=== PATIENT | male | born 1960 | race Caucasian/White ===

== ENCOUNTER 2025-03-02 01:59 | Emergency (ER) | payer MEDICARE, SELFPAY ==
--- OUTSIDE RECORDS SUMMARY | 2025-02-19 23:54 | XMS_ITS | Encounter Summary ---
Author Organization [facility] Address [address] [place] [id number] Care Team Providers Care Restoration Ecologist Name Role Phone Emanuel Odonnell MD Primary Care Provider [phone] [facility], Aries Brody Primary Care Provider Reason for Visit * Reason Comments Palpitations Hematuria Encounter Details Date Type Department Care Team (Late st Contact Info) Description 02/19/2025 11:54 PM CDT - 02/20/2025 2:58 AM CDT Emergency [facility] Emergency Dept [address] [place] [id number] [phone] Matias Steen MD [facility] [address] [facility] [address] [place] [id number] Atrial flutter with rapid ventricular response (H) Discharge Disposition: Home or Self Care Social History Tobacco Use Types Packs/Day Years Used Date Smoking Tobacco: Never Smokeless Tobacco: Never Alcohol Use Standard Drinks/Week Comments Yes 0 (1 standard drink = 0.6 oz pur e alcohol) 4 drinks weekly Sex and Gender Information Value Date Recorded Sex Assigned at Not on file Legal 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 Gender Identity Not on file Sexual Orientation Not on file documented as of this encounter Last Filed Vital Signs Vital Sign Reading Time Taken Comments Blood Pressure 107/89 02/20/2025 2:35 AM CDT Pulse 58 02/20/2025 2:35 AM CDT Temperature 36.7 C (98 F) 02/19/2025 11:28 PM CDT Respiratory Rate 20 02/20/2025 2:35 AM CDT Oxygen Saturation 98% 02/20/2025 2:35 AM CDT Inhaled Oxygen Concentration - - Weight 109.2 kg (240 lb 11.9 oz) 2024 11:28 PM CDT Height 180.3 cm (5' 11) 02/19/2025 11: 28 PM CDT Body Mass Index 33.58 02/19/2025 11:28 PM CDT documented in this encounter Discharge Instructions * Attachments The following attachments cannot be sent through Care Everywhere. * Atrial Flutter (Tanzanian) documented in this encounter Medications at Time of Discharge diltiazem ER (CARDIAZEM LA) 120 MG 24 hr tablet Take 1 tablet (120 mg) by mouth daily. 30 tablet 02/20/2025 acetaminophen (TYLENOL) 500 MG tabletIndications: Hip replacement Take 2 tablets by mouth every 6 hours as needed. 100 tablet 0 05/25/2012 brimonidine (ALPHAGAN-P) 0.15 % ophthalmic solutionIndication s:Tear film insufficiency Place 1 drop into both eyes 2 times daily Keep 4-20-16 appointment for further refills 1 Bottle 0 12/22/2015 GABAPENTIN PO Take 300 mg by mouth daily. lisinopril (PRINIVIL,ZESTRIL) 10 MG tablet Take 10 mg by mouth daily. loteprednol (LOTEMAX) 0.5 % ophthalmic suspensionIndicati ons:Ulcerative blepharitis, unspecified laterality Place 1 drop into both eyes 2 times daily 1 Bottle 3 06/24/2014 olopatadine (PATANOL) 0.1 % ophthalmic solutionIndication s:Tear film insufficiency Place 1 drop into both eyes 2 times daily Keep 4-20-16 appointment for further refills 1 Bottle 0 12/22/2015 pantoprazole (PROTONIX) 40 MG enteric coated tablet Take 40 mg by mouth daily. SIMVASTATIN PO Take 20 mg by mouth zolpidem (AMBIEN) 10 MG tablet Take by mouth nightly as needed. documented as of this encounter ED Notes * Stevie Cr RN - 02/20/2025 12:27 AM CDT Bed: ED14 Expected date: Expected time: Means of arrival: Comments: Int4 - Ready * Matias Steen MD - 02/20/2025 12:15 AM CDT Emergency Department Note History of Present Illness Chief Complaint Palpitations and Hematuria HPI Home Parker is a 64 year old male with a history of atrial flutter on Xarelto, hypertension, GERD, hyperlipidemia, and chronic pain who presents to the ED today for evaluation of palpitations andhematuria. The patient reports he was diagnosed with atrial fibrillation/atrial flutter at the end of January and has been on Xarelto for the past 10 days. He states his heart rate has been around 90 bpmsince the diagnosis, but it was in the 120s-130s when he took it tonight. He states his blood pressure was around 112/90 as well. He mentions he noticed his urine was light pink tonight as well whichhe expresses concern for. He states that he takes various medications throughout the day, but he doesn't take any to slow his heart rate. The patient denies any dizziness or lightheadedness. He also denies any shortness of breath, chest pain, abdominal pain, or pain with urination. He states he hasan allergy to doxycycline. He mentions he met with his tiller worker yesterday and has a cardioversion scheduled for later in the month. Independent Historian None Review of External Notes Reviewed cardiology office note from 02/18/2025 detailing history of atrial fibrillation/flutter Past Medical History Medical History and Problem List Chronic pain Hypertension WILBUR GERD Insomnia Hyperlipidemia RLS Sensorineural hearing loss bilateral Atrial flutter Medications Gabapentin Lisinopril Pantoprazole Simvastatin Ambien Indocin Lisinopril-hydrochlorothiazide Ativan Xarelto Rosuvastatin Aspirin 81 mg Surgical History Hip arthroplasty, left Patella repair Physical Exam Patient Vitals for the past 24 hrs: BP Temp Temp src Pulse Resp SpO2 Height Weight 02/20/25 0140 112/80 -- -- 112 21 95 % -- -- 02/20/25 0130 109/81 -- -- 100 21 93 % -- -- 02/20/25 0120 -- -- -- 106 20 93 % -- -- 02/20/25 0116 -- -- -- 101 20 96 % -- -- 02/20/25 0115 120/77 -- -- -- 15 96 % -- -- 02/20/25 0100 107/78 -- -- 100 21 94 % -- -- 02/20/25 0045 106/74 -- -- 104 26 96 % -- -- 02/20/25 0030 107/87 -- -- -- -- -- -- -- 02/19/25 2328 (!) 123/102 98 ??F (36.7 ??C) Temporal (!) 130 20 98 % 1.803 m (5' 11) 109.2 kg (240lb 11.9 oz) Physical Exam General: Patient is awake, alert CV: Tachycardic but regular Resp: Lungs are clear without wheezes or rales. No respiratory distress. MS: Normal tone. Joints grossly normal without effusions. No asymmetric leg swelling, calf or thightenderness. Skin: No rash or lesions noted. Normal capillary refill noted Neuro: Speech is normal and fluent. Face is symmetric. Moving all extremities. Psych: Normal affect. Appropriate interactions. Diagnostics Lab Results Labs Ordered and Resulted from Time of ED Arrival to Time of ED Departure BASIC METABOLIC PANEL - Abnormal Result Value Sodium 140 Potassium 4.0 Chloride 102 Carbon Dioxide (CO2) 24 Anion Gap 14 Urea Nitrogen 13.1 Creatinine 1.21 (*) GFR Estimate 66 Calcium 9.6 Glucose 108 (*) CBC WITH PLATELETS AND DIFFERENTIAL - Abnormal WBC Count 11.6 (*) RBC Count 4.63 Hemoglobin 14.2 Hematocrit 41.6 MCV 90 MCH 30.7 MCHC 34.1 RDW 13.5 Platelet Count 230 % Neutrophils 65 % Lymphocytes 24 % Monocytes 8 % Eosinophils 1 % Basophils 0 % Immature Granulocytes 1 NRBCs per 100 WBC 0 Absolute Neutrophils 7.6 Absolute Lymphocytes 2.8 Absolute Monocytes 1.0 Absolute Eosinophils 0.2 Absolute Basophils 0.0 Absolute Immature Granulocytes 0.1 Absolute NRBCs 0.0 ROUTINE UA WITH MICROSCOPIC REFLEX TO CULTURE - Abnormal Color Urine Ronit (*) Appearance Urine Slightly Cloudy (*) Glucose Urine Negative Bilirubin Urine Negative Ketones Urine Negative Specific [place] Urine 1.022 Blood Urine Large (*) pH Urine 5.5 Protein Albumin Urine 50 (*) Urobilinogen Urine 2.0 (*) Nitrite Urine Negative Leukocyte Esterase Urine Negative Mucus Urine Present (*) RBC Urine >182 (*) WBC Urine 12 (*) Squamous Epithelials Urine 1 TROPONIN T, HIGH SENSITIVITY - Normal Troponin T, High Sensitivity 11 MAGNESIUM - Normal Magnesium 2.0 TROPONIN T, HIGH SENSITIVITY - Normal Troponin T, High Sensitivity 10 URINE CULTURE Imaging No orders to display EKG #1 ECG taken at 2322, ECG read at 0020 Nonspecific T wave abnormality Atrial flutter Rate 127 bpm. VT interval 136 ms. QRS duration 86 ms. QT/QTc 314/456 ms. P-R-T axes 54 42 68. EKG #2 ECG taken at 0234, ECG read at 0239 Atrial flutter with variable AV block Nonspecific T wave abnormality Rate 58 bpm. VT interval * ms. QRS duration 90 ms. QT/QTc 380/373 ms. P-R-T axes * 13 39. Independent Interpretation None ED Course Medications Administered Medications No anticoagulants IF patient has had acute trauma/surgery or recent intracranial, GI or urinary tract bleeding. (has no administration in time range) magnesium sulfate 2 g in 50 mL sterile water intermittent infusion (2 g Intravenous $New Bag 02/20/25 0040) diltiazem (CARDIZEM) injection 27.3 mg (27.3 mg Intravenous $Given 02/20/25 0142) sodium chloride 0.9% BOLUS 500 mL (500 mLs Intravenous $New Bag 02/20/25 0113) Discussion of Management None ED Course ED Course as of 02/20/25 0244 TueFeb 20, 2025 0007 I obtained history and examined the patient as noted above. 0240 I rechecked and updated the patient. Patient passed his ambulation trial, and was not dizzy orlightheaded when moving around. Additional Documentation None Medical Decision Making / Diagnosis YUMIKO Home Parker is a 64 year old male with known history of atrial fibrillation/a flutter who is currently anticoagulated on Xarelto who presents to the emergency department with elevated heart rate in the setting of known a flutter. Patient reports that he has been following closely with cardiology and has a appointment at the end of the month for a cardioversion/ablation with electrophysiology through the [facility]. He is not currently on any rate control medications as thishas not been a problem for him. Upon initial evaluation here he is tachycardic to the 130s. EKG shows atrial flutter with RVR. Discussed rate control with the patient. Performed with diltiazem bolus with successful rate control with heart rate in the 50s and 60s. Repeat EKG confirms atrial flutter now with controlled ventricular rate. Blood work is otherwise reassuring. Low concern for ACS. Patient is completely asymptomatic. Was able to pass ambulation trial. Since he is not rate controlled and anticoagulated I feel that he can be managed as an outpatient. Patient has good appropriate follow-up with his cardiology team. Recommended calling them in the morning. Will start the patient on extended release diltiazem. We discussed reasons to return to the emergency department. Patient also had complaint of mild hematuria. UA does show blood in the urine likely from his Xarelto. Patient's not had any clots or gross hematuria. We discussed reasons to return to the emergency department. UA not consistent with infection at this time. Disposition The patient was discharged. Diagnosis ICD-10-CM 1. Atrial flutter with rapid ventricular response (H) I48.92 Scribe Disclosure: Natalie Troncoso, jose serving as a scribe at 12:58 AM on 02/20/2025 to document services personally performed by Matias Steen MD based on my observations and the provider's statements to me. Matias Steen MD 02/20/25 0405 * Lucrecia Duran RN - 02/19/2025 11:24 PM CDT Patient taken to EKG. Pt arrives stating he was just diagnosed with afib. Heart rate at home 120s. Scheduled for cardioversion on 03/08. Note hematuria today. Denies chest pain. Pt did take his sleeping pill before symptoms started. documented in this encounter Plan of Treatment Not on file documented as of this encounter Procedures Procedure Name Priority Date/Time Associated Diagnosis Comments EKG 12-LEAD, TRACING ONLY STAT 02/20/2025 2:34 AM CDT TROPONIN T, HIGH SENSITIVITY STAT 02/20/2025 1:33 AM CDT ROUTINE UA WITH MICROSCOPIC REFLEX TO CULTURE STAT 02/20/2025 12:25 AM CDT URINE CULTURE STAT 02/20/2025 12:25 AM CDT EXTRA TUBE STAT 02/19/2025 11:31 PM CDT EXTRA RED TOP TUBE STAT 02/19/2025 11 :31 PM CDT EXTRA BLUE TOP TUBE STAT 02/19/2025 1 1:31 PM CDT CBC WITH PLATELETS AND DIFFERENTIAL STAT 02/19/2025 11:31 PM CDT TROPONIN T, HIGH SENSITIVITY STAT 02/19/2025 11:31 PM CDT CBC WITH PLATELETS & DIFFERENTIAL STAT 02/19/2025 11:31 PM CDT MAGNESIUM STAT 02/19/2025 11:31 PM CDT BASIC METABOLIC PANEL STAT 02/19/2025 11:31 PM CDT EKG 12-LEAD, TRACING ONLY STAT 02/19/2025 11:22 PM CDT documented in this encounter Results * EKG 12-lead, tracing only (02/20/2025 2:34 AM CDT) Systolic Blood Pressure mmHg RADIOLOGY RESULTS Diastolic Blood Pressure mmHg RADIOLOGY RESULTS Ventricular Rate 58 BPM RAD IOLOGY RESULTS Atrial Rate 256 BPM RADIOLOG Y RESULTS VT Interval ms RADIOLOG Y RESULTS QRS Duration 90 ms RADIOLO GY RESULTS QT 380 ms RADIOLOGY RESULTS QTc 373 ms RADIOLOGY RESULTS P [place] degrees RADIOLOGY RESULTS R AXIS 13 degrees RADIOLOGY RESULTS T [place] 39 degrees RADIOLOGY RESULTS Interpretation ECG Atrial flutter with variable A-V block Nonspecific T wave abnormality Abnormal ECG When compared with ECG of 19-Feb-2025 23:22, (unconfirmed) Atrial flutter has replaced Sinus rhythm Vent. rate has decreased by 69 bpm Non-specific change in ST segment in Inferior leads Non-specific change in ST segment in Lateral leads Unconfirmed report - interpretation of this ECG is computer generated - see medical record for final interpretation Confirmed by - EMERGENCY ROOM, PHYSICIAN ([id number]), fashion editor DIMAS URIBE ([id number]) on 02/20/2025 6:46:48 AM RADIOLOGY RESULTS 02/20/2025 2:34 AM CDT 02/20/2025 6:46 AM CDT Matias Steen MD ECG ORDERABLES E dited Result - Final RADIOLOGY RESULTS * Troponin T, High Sensitivity (02/20/2025 1:33 AM CDT) Troponin T, High Sensitivity 10 <=22 ng/L 02/20/2025 2:02 AM CDT LABORATORY Comment: Either a High Sensitivity Troponin T baseline (0 hours) value = 100 ng/L, or an increase in High Sensitivity Troponin T = 7 ng/L at 2 hours compared to 0 hours (2-0 hours), suggests myocardial injury, and urgent clinical attention is required. If the 2-0 hours increase is <7 ng/L, a High Sensitivity Troponin T result above gender-specific reference ranges warrants further evaluation. Recommendations for further evaluation include correlation with clinical decision-making tool (e.g., HEART), a 3rd High Sensitivity Troponin T test 2 hours after the 2nd (a 20% change from baseline would represent concern), admission for observation, close PCC/cardiology follow-up, or urgent outpatient provocative testing. Blood VENOUS LINE / Unknown Venipuncture / Unknown 02/20/2025 1:33 AM CDT 02/20/2025 1:36 AM CDT Matias Steen MD LAB - BLOOD ORDER LUIS Final Result LABORATORY [facility] [address] Lab (1st floor, no room number) [place] [address], [facility] * Urine Culture (02/20/2025 12:25 AM CDT) Culture No Growth 02/21/2025 2:48 AM CDT [facility] LABORATORY Urine MID-STREAM URINE SPECIMEN / Unknown Non-blood Collection / Unknown 02/20/2025 12:25 AM CDT 02/20/2025 1:11 AM CDT us Matias Steen MD LAB - MICRO GENER AL ORDERABLES Final Result [facility] LABORATORY [facility] Inf. Diseases Diag. Lab [address] [place] [address], [facility] * (ABNORMAL) UA with Microscopic reflex to Culture (02/20/2025 12:25 AM CDT) Color Urine Ronit(A) Colorless, Straw, Light Yellow, Yellow 02/20/2025 1:11 AM CDT LABORATORY Appearance Urine Slightly Cloudy(A) Clear 02/20/2025 1:11 AM CDT LABORATORY Glucose Urine Negative Negative mg/dL 02/20/2025 1:11 AM CDT LABORATORY Bilirubin Urine Negative Negative 1:11 AM CDT LABORATORY Ketones Urine Negative Negative mg/dL 02/20/2025 1:11 AM CDT LABORATORY Specific [place] Urine 1.022 1.003 - 1.035 02/20/2025 1:11 AM CDT LABORATORY Blood Urine Large(A) Negative 02/20/2025 1:11 AM CDT LABORATORY pH Urine 5.5 5.0 - 7.0 02/20/2025 1:11 AM CDT LABORATORY Protein Albumin Urine 50(A) Negative mg/dL 02/20/2025 1:11 AM CDT LABORATORY Urobilinogen Urine 2.0(A) Normal mg/dL 02/20/2025 1:11 AM CDT LABORATORY Nitrite Urine Negative Negative 02/20/2025 1:11 AM CDT [facility] LABORATORY Leukocyte Esterase Urine Negative Negative 02/20/2025 1:11 AM CDT [facility] LABORATORY Mucus Urine Present(A) None Seen /LPF 02/20/2025 1:11 AM CDT [facility] LABORATORY RBC Urine >182(H) <=2 /HPF 02/20/2025 1:11 AM CDT [facility] LABORATORY WBC Urine 12(H) <=5 /HPF 02/20/2025 1:11 AM CDT [facility] LABORATORY Squamous Epithelials Urine 1 <=1 /HPF 02/20/2025 1:11 AM CDT LABORATORY Urine MID-STREAM URINE SPECIMEN / Unknown Non-blood Collection / Unknown 02/20/2025 12:25 AM CDT 02/20/2025 12:57 AM CDT Narrative LABORATORY - 02/20/2025 1:11 AM CDT Urine Culture ordered based on laboratory criteria us Matias Steen MD LAB - URINE ORDER LUIS Final Result [facility] [address] Lab (1st floor, no room number) [place] [id number] [place] [address] * Magnesium (02/19/2025 11:31 PM CDT) Magnesium 2.0 1.7 - 2.3 mg/dL 02/20/2025 12:23 AM CDT LABORATORY Blood VENOUS LINE / Unknown Venipuncture / Unknown 02/19/2025 11:31 PM CDT 02/19/2025 11:37 PM CDT us Matias Steen MD LAB - BLOOD ORDER LUIS Final Result [facility] [address] Lab (1st floor, no room number) [place] [address] * Extra Red Top Tube (02/19/2025 11:31 PM CDT) Hold Specimen JIC 02/20/2025 12:47 AM CDT [facility] LABORATORY Blood VENOUS LINE / Unknown Venipuncture / Unknown 02/19/2025 11:31 PM CDT 02/19/2025 11:37 PM CDT Matias Steen MD LAB - BLOOD ORDER LUIS Final Result LABORATORY [facility] [address] Lab (1st floor, no room number) [place] [phone] [place] [address] * Extra Blue Top Tube (02/19/2025 11:31 PM CDT) Hold Specimen JIC 02/20/2025 12:47 AM CDT [facility] LABORATORY Blood VENOUS LINE / Unknown Venipuncture / Unknown 02/19/2025 11:31 PM CDT 02/19/2025 11:37 PM CDT Matias Steen MD LAB - BLOOD ORDER LUIS Final Result LABORATORY [facility] [address] Lab (1st floor, no room number) [address] * (ABNORMAL) CBC with platelets and differential (02/19/2025 11:31 PM CDT) WBC Count 11.6(H) 4.0 - 11.0 10e3/uL 02/19/2025 11:40 PM CDT [facility] LABORATORY RBC Count 4.63 4.40 - 5.90 10e6/uL 02/19/2025 11:40 PM CDT [facility] LABORATORY Hemoglobin 14.2 13.3 - 17.7 g/dL 02/19/2025 11:40 PM CDT [facility] LABORATORY Hematocrit 41.6 40.0 - 53.0 % 02/19/2025 11:40 PM CDT [facility] LABORATORY MCV 90 78 - 100 fL 02/19/2025 11:40 PM CDT [facility] LABORATORY MCH 30.7 26.5 - 33.0 pg 02/19/2025 11:40 PM CDT [facility] LABORATORY MCHC 34.1 31.5 - 36.5 g/dL 02/19/2025 11:40 PM CDT [facility] LABORATORY RDW 13.5 10.0 - 15.0 % 02/19/2025 11:40 PM CDT [facility] LABORATORY Platelet Count 230 150 - 450 10e3/uL 02/19/2025 11:40 PM CDT [facility] LABORATORY % Neutrophils 65 % 02/19/2025 11:40 PM CDT [facility] LAB[facility]AT[facility] % Lymphocytes 24 % 02/19/2025 11:40 PM CDT [facility] LABORAT[facility] % Monocytes 8 % 02/19/2025 11:40 PM CDT [facility] LABORATORY % Eosinophils 1 % 02/19/2025 11:40 PM CDT [facility] LABORATORY % Basophils 0 % 02/19/2025 11:40 PM CDT [facility] LABORATORY % Immature Granulocytes 1 % 02/19/2025 11:40 PM CDT [facility] LABORATORY NRBCs per 100 WBC 0 <1 /100 025 11:40 PM CDT [facility] LABORATORY Absolute Neutrophils 7.6 1.6 - 8.3 10e3/uL 02/19/2025 11:40 PM CDT [facility] LABORATORY Absolute Lymphocytes 2.8 0.8 - 5.3 10e3/uL 02/19/2025 11:40 PM CDT [facility] LABORATORY Absolute Monocytes 1.0 0.0 - 1.3 10e3/uL 02/19/2025 11:40 PM CDT [facility] LABORATORY Absolute Eosinophils 0.2 0.0 - 0.7 10e3/uL 02/19/2025 11:40 PM CDT [facility] LABORATORY Absolute Basophils 0.0 0.0 - 0.2 10e3/uL 02/19/2025 11:40 PM CDT [facility] LABORATORY Absolute Immature Granulocytes 0.1 <=0.4 10e3/uL 02/19/2025 11:40 PM CDT [facility] LABORATORY Absolute NRBCs 0.0 10e3/uL 02/19/2025 11:40 PM CDT [facility] LABORATORY Blood VENOUS LINE / Unknown Venipuncture / Unknown 02/19/2025 11:31 PM CDT 02/19/2025 11:37 PM CDT us Matias Steen MD LAB - BLOOD ORDER LUIS Final Result [facility] LABORATORY [facility] [address] Lab (1st floor, no room number) [place] [address], [facility] * Troponin T, High Sensitivity (02/19/2025 11:31 PM CDT) Pathologist [facility] Troponin T, High Sensitivity 11 <=22 ng/L 02/19/2025 11:57 PM CDT [facility] LABORATORY Comment: Either a High Sensitivity Troponin T baseline (0 hours) value = 100 ng/L, or an increase in High Sensitivity Troponin T = 7 ng/L at 2 hours compared to 0 hours (2-0 hours), suggests myocardial injury, and urgent clinical attention is required. If the 2-0 hours increase is <7 ng/L, a High Sensitivity Troponin T result above gender-specific reference ranges warrants further evaluation. Recommendations for further evaluation include correlation with clinical decision-making tool (e.g., HEART), a 3rd High Sensitivity Troponin T test 2 hours after the 2nd (a 20% change from baseline would represent concern), admission for observation, close PCC/cardiology follow-up, or urgent outpatient provocative testing. Blood VENOUS LINE / Unknown Venipuncture / Unknown 02/19/2025 11:31 PM CDT 02/19/2025 11:37 PM CDT us Matias Steen MD LAB - BLOOD ORDER LUIS Final Result LABORATORY [facility] [address] Lab (1st floor, no room number) [place] [address], [facility] * (ABNORMAL) Basic metabolic panel (02/19/2025 11:31 PM CDT) Pathologist [facility] Sodium 140 135 - 145 mmol/L 02/19/2025 11:57 PM CDT LABORATORY Potassium 4.0 3.4 - 5.3 mmol/L 02/19/2025 11:57 PM CDT LABORATORY Chloride 102 98 - 107 mmol/L 02/19/2025 11:57 PM CDT LABORATORY Carbon Dioxide (CO2) 24 22 - 29 mmol/L 02/19/2025 11:57 PM CDT [facility] LABORATORY Anion Gap 14 7 - 15 mmol/L 02/19/2025 11:57 PM CDT [facility] LABORATORY Urea Nitrogen 13.1 8.0 - 23.0 mg/dL 02/19/2025 11:57 PM CDT [facility] LABORATORY Creatinine 1.21(H) 0.67 - 1.17 mg/dL 02/19/2025 11:57 PM CDT [facility] LABORATORY GFR Estimate 66 >60 mL/min/1.7 3m2 02/19/2025 11:57 PM CDT [facility] LABORATORY Comment:eGFR calculated usin 2020 CKD-EPI equation. Calcium 9.6 8.8 - 10.4 mg/dL 02/19/2025 11:57 PM CDT LABORATORY Glucose 108(H) 70 - 99 mg/dL 02/19/2025 11:57 PM CDT LABORATORY Blood VENOUS LINE / Unknown Venipuncture / Unknown 02/19/2025 11:31 PM CDT 02/19/2025 11:37 PM CDT Matias Steen MD LAB - BLOOD ORDER LUIS Final Result LABORATORY [facility] [address] Lab (1st floor, no room number) [place] [address] * EKG 12-lead, tracing only (02/19/2025 11:22 PM CDT) Systolic Blood Pressure mmHg RADIOLOGY RESULTS Diastolic Blood Pressure mmHg RADIOLOGY RESULTS Ventricular Rate 127 BPM RAD IOLOGY RESULTS Atrial Rate 127 BPM RADIOLOG Y RESULTS VT Interval 136 ms RADIOLOG Y RESULTS QRS Duration 86 ms RADIOLO GY RESULTS QT 314 ms RADIOLOGY RESULTS QTc 456 ms RADIOLOGY RESULTS P [place] 54 degrees RADIOLOGY RESULTS R AXIS 42 degrees RADIOLOGY RESULTS T [place] 68 degrees RADIOLOGY RESULTS Interpretation ECG Sinus tachycardia Nonspecific T wave abnormality Abnormal ECG No previous ECGs available Unconfirmed report - interpretation of this ECG is computer generated - see medical record for final interpretation Confirmed by - EMERGENCY ROOM, PHYSICIAN ([id number]), fashion editor DIMAS URIBE ([id number]) on 02/20/2025 6:47:11 AM RADIOLOGY RESULTS 02/19/2025 11:2 2 PM CDT 02/20/2025 6:47 AM CDT Matias Steen MD ECG ORDERABLES E dited Result - Final RADIOLOGY RESULTS documented in this encounter Visit Diagnoses Diagnosis Atrial flutter with rapid ventricular response (H) Atrial flutter documented in this encounter Administered Medications Inactive Administered Medications - up to 3 most recent administrations Medication Order MAR Action Action Date Dose Rate Site diltiazem (CARDIZEM) injection 27.3 mg 27.3 mg (0.25 mg/kg 109.2 kg), Intravenous, ONCE, Administer over 2 Minutes, On Tue02/20/25 at 0020, For 1 dose, For FIRST bolus. Target Heart Rate should be less [id number] beats per minute Start at the lowest dose ordered. Give over 2 minutes, give prior to infusion. Then initiate 2nd bolus (if ordered) or infusion (if ordered). FOR Telemetry patients ONLY. Hold if systolic blood pressure less than 90 mmHg or heart rate less than 60 bpm $Given 02/20/2025 1:42 AM CDT 27.3 mg magnesium sulfate 2 g in 50 mL sterile water intermittent infusion 2 g, Intravenous, Administer over 60 Minutes, at 50 mL/hr, ONCE, On Tue02/20/25 at 0005, For 1 dose $New Bag 02/20/2025 12:40 AM CDT 2 g 50 mL/hr No anticoagulants IF patient has had acute trauma/surgery or recent intracranial, GI or urinary tract bleeding. No anticoagulants IF patient has had acute trauma/surgery or recent intracranial, GI or urinary tract bleeding. sodium chloride 0.9% BOLUS 500 mL Intravenous, 500 mL, ONCE, at 500 mL/hr, Administer over 1 Hours, On Tue02/20/25 at 0035, For 1 dose $New Bag 02/20/2025 1:13 AM CDT 500 mLs 500 mL/hr documented in this encounter Active and Recently Administered Medications Times are shown in CDT. Scheduled Medication Order 02/18/2025 02/19/2025 02/20/2025 diltiazem (CARDIZEM) injection 27.3 mg (COMPLETED) 27.3 mg (0.25 mg/kg 109.2 kg), Intravenous, ONCE, Administer over 2 Minutes, On Tue02/20/25 at 0020, For 1 dose, For FIRST bolus. Target Heart Rate should be less [id number] beats per minute Start at the lowest dose ordered. Give over 2 minutes, give prior to infusion. Then initiate 2nd bolus (if ordered) or infusion (if ordered). FOR Telemetry patients ONLY. Hold if systolic blood pressure less than 90 mmHg or heart rate less than 60 bpm 0142 ($Given - Provi maury: Vinecnt Valdes RN - Comment: Patient was rate controlled under 110 during due time. Ok to give now per Enio) magnesium sulfate 2 g in 50 mL sterile water intermittent infusion (COMPLETED) 2 g, Intravenous, Administer over 60 Minutes, at 50 mL/hr, ONCE, On Tue02/20/25 at 0005, For 1 dose 0040 ($New Bag - Pro vider: Vincent Valdes RN)0252 (Stopped - Provider: Vincent Valdes RN) sodium chloride 0.9% BOLUS 500 mL (COMPLETED) Intravenous, 500 mL, ONCE, at 500 mL/hr, Administer over 1 Hours, On Tue02/20/25 at 0035, For 1 dose 0113 ($New Bag - Pro vider: Vincent Valdes RN)0251 (Stopped - Provider: Vincent Valdes RN) PRN Medication Order 02/18/2025 02/19/2025 02/20/2025 No anticoagulants IF patient has had acute trauma/surgery or recent intracranial, GI or urinary tract bleeding. No anticoagulants IF patient has had acute trauma/surgery or recent intracranial, GI or urinary tract bleeding. documented in this encounter Care Teams [employer] Relationship Specialty Start Date End Date Emanuel Odonnell MD PCP - General Family Practice 05/08/12 02/19/25 [place] [address] PCP - General 02/20/25 documented as of this encounter
--- OUTSIDE RECORDS SUMMARY | 2025-03-02 02:01 | XMS_ITS | Clinical Summary ---
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 30 tablet 09/18/19 21 Active LORazepam (ATIVAN) 1 mg tabletIndications:F ear of flying Take 1-2 tablets 1/2 hour before flying. 10 Tablet 1 01/13/20 24 Active indomethacin (INDOCIN) 50 mg capsuleIndications: Acute pain of left knee Take 1 Capsule (50 mg) by mouth three times daily with meals. For gout flareup 21 Capsule 10/18/19 25 Active gabapentin 300 mg capsuleIndications: RLS (restless legs syndrome) Take 2 Capsules (600 mg) by mouth at bedtime. 180 Capsule 3 02/08/20 25 Active lisinopril-hydrochl orothiazide (10-12.5 mg) tablet (PRINZIDE; ZESTORETIC)Indicati ons:HTN (hypertension) Take 1 Tablet by mouth once daily. 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 100 Tablet 3 02/08/20 25 Active pantoprazole 40 mg delayed-release tabletIndications:C hronic GERD Take 1 Tablet (40 mg) by mouth once daily before a meal. 100 Tablet 3 02/08/20 25 Active zolpidem 10 mg tabletIndications:I nsomnia, idiopathic Take 1 Tablet (10 mg) by mouth at bedtime if needed for Sleep. 90 Tablet 3 02/08/20 25 Active mometasone 0.1 % creamIndications:Ra sh Apply topically to affected area(s) once daily. 45 g 1 02/08/20 25 Active scopolamine 1 mg over 3 days patchIndications:Mo tion sickness, subsequent encounter Apply 1 Patch on dry, clean, hairless skin every 72 hours. Remove old patch before applying new one. 3 Each 02/08/20 25 Active rivaroxaban 20 mg tabletIndications:p revent thromboembolism in chronic atrial fibrillation Take 1 Tablet (20 mg) by mouth once daily with evening meal. 90 Tablet 3 02/08/20 25 Active diltiazem LA 120 mg extended release 24 hr tablet Take 120 mg by mouth once daily. 02/21/20 25 Active gabapentin (NEURONTIN) 300 mg capsuleIndications: RLS (restless legs syndrome) Take 2 Capsules (600 mg) by mouth at bedtime. 180 Capsule 3 02/07/20 24 025 Discontinu ed(Reorder (E-cancel not sent)) zolpidem (AMBIEN) 10 mg tabletIndications:I nsomnia, idiopathic Take 1 Tablet (10 mg) by mouth at bedtime if needed for Sleep. 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 025 Discontinu ed(Duplica te therapy (E-cancel not sent)) Active Problems Problem Noted Date Diagnosed Date Sensorineural hearing loss (SNHL) of both ears 0 02/23/2023 Hyperlipemia 01/21/2023 Hypertension 01/21/2023 Insomnia, idiopathic 09/18/2020 Mixed hyperlipidemia 09/18/2020 hypertension 09/18/2020 GERD 09/18/2020 Restless leg syndrome 09/18/2020 Obstructive sleep apnea 09/18/2020 Resolved Problems Problem Noted Date Diagnosed Date Resolved Date Asymmetrical sensorineural hearing loss 01/31/2023 02/23/2023 Encounters Date Type Department Care Team Description 02/20/2025 Telephone [facility] [place] [address] [place] [address] Deepak Lr MD Follow Up 02/18/2025 3:00 PM CDT Office Visit [facility] [place] [address] [facility] [address] [place] [address] Deepak Lr MD Consult (PREVIOUS DR THOMAS PT, NEW ATRIAL FLUTTER, ECHO DONE 02/14, DX: Atrial flutter, unspecified type PT states feeling fine. No cardiac symptoms today. He occ gets heartburn. Discuss his plan of care moving forward. ) 02/17/2025 Travel 02/14/2025 9:00 AM CDT Ancillary Procedure [facility] [address] [place] [address] 02/14/2025 Travel 02/07/2025 8:40 AM CDT Office Visit [facility] [address] [place] [address] Sharee Reyes MD Medicare [facility] Visit (64 yo Male/) 02/07/2025 Orders Only [facility] [address] [place] [address] Sharee Reyes MD 1 scan: (1-Ord) NFLD-EKG-02/07/25 02/07/2025 Travel 02/02/2025 Travel 01/22/2025 Refill [facility] [address] [place] [address] Sharee Reyes MD Refill Request (Pantoprazole) 01/08/2025 Refill [facility] [address] [place] [address] Sharee Reyes MD Refill Request (Rosuvastatin, Lisinopril-hydrochlo rothiazide 10 Mg-12.5 Mg) from Last 3 Months Immunizations Immunization Administration Dates Next Due COVID-19 vaccine ([employer] 30mcg/0.3mL) PF, MDV 07/30/2021,12/20/2020,11/29/2020 Influenza RIV4 (Age 18+ Years) PRESERV FREE 07/13 Influenza, IIV4 07/07/2022,07/30/2021 Influenza, IIV4 (=>6mos) MDV 07/11/2020 Td, Preservative Free (age >= 7 Years) 5,09/12/1994 Tdap 12/23/2022,01/02/2013 Zoster (Shingrix-RZV, recombinant) 03/19/2020, Social History Tobacco Use Types Packs/Day Years Used Date Smoking Tobacco: Never Passive Smoke Exposure: Never Smokeless Tobacco: Never Tobacco Cessation:Counseling Given: No Alcohol Use Standard Drinks/Week Comments Yes 0 (1 standard drink = 0.6 oz pur e alcohol) socially PHQ-2 Answer Date Recorded PHQ-2 TOTAL SCORE 0 02/07/2025 Social Connections Answer Date Recorded Do you often feel lonely or isolated from those around you? 0 02/02/2025 Financial Resource Strain Answer Date R ecorded Difficulty of Paying Living Expenses 3 02/02/2025 Difficulty of Paying Living Expenses Not on file 02/02/2025 Food Insecurity Answer Date Recorded Do you worry your food will run out before you are able to buy more? 1 02/02/2025 Transportation Needs Answer Date Record ed Does lack of transportation keep you from medica l appointments? 1 02/02/2025 Does lack of transportation keep you from work, meetings or getting things that you need? 1 02/02/2025 Housing Stability Answer Date Recorded What is your housing situation today? 1 02/02/2025 Utilities Answer Date Recorded Do you have trouble paying f or utilities (for example, heat, electricity, water, phone)? 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 Not on file Not on file Obstetrics History Last Filed Vital Signs Vital Sign Reading Time Taken Comments Blood Pressure 120/79 02/18/2025 3:01 PM CDT Pulse 89 02/18/2025 3:01 PM CDT Temperature 36.7 C (98.1 F) 01/21/2023 2:39 PM CDT Respiratory Rate 16 01/21/2023 2:39 PM CDT Oxygen Saturation 98% 02/18/2025 3:01 PM CDT Inhaled Oxygen Concentration - - Weight 109.8 kg (242 lb) 02/18/2025 3:01 PM CDT Height 180.3 cm (5' 11) 02/18/2025 3:01 PM CDT Body Mass Index 33.75 02/18/2025 3:01 PM CDT Plan of Treatment Upcoming Encounters Date Type Department Care Team (Late st Contact Info) Description 03/08/2025 1:00 PM CDT Appointment [facility] [address] [place] [address] 05/28/2025 9:45 AM CDT Office Visit [facility] [address] [facility] [address] [place] [address] [place] [address] [facility] [address] [place] [address] Health Maintenance Due Date Last Done Comments HIV for age 15-65 1974 Pneumococcal series for age 50+ (1 of 2 - PCV) 1978 RSV vaccine for adults or (1 - Risk 60-74 years 1-dose series) 2019 COVID-19 vaccine series ( season) 2024 07/07/2022, 07/30/2021, 12/20/2020, Additional history exists Influenza Vaccine (Season Ended) 2025 07/07/2022, 07/30/2021, 07/30/2021, Additional history exists Depression screening for age 12+ 02/07/2026 02/07/2025, 01/14/2024, 01/13/2024, Additional history exists Medicare Wellness for age 65+ 02/08/2026 02/07/2025 BMI (ht and wt on same day) for age 18+ 02/18/2026 02/18/2025, 02/14/2024, 01/13/2024, Additional history exists Fecal testing sDNA-FIT (Cologuard) for age 45-75 01/18/2027 01/19/2024 Lipids for age 45-75 02/07/2030 02/07/2025, 01/13/2024, 12/23/2022, Additional history exists Tetanus booster 12/23/2032 12/23/2022, 12/12, 06/12/2005, Additional history exists Zoster (shingles) series for age 50+ Completed 03/19/2020, 11/13/2019 Hepatitis C screening for age 18-79 Completed 01/21/2021 Tdap Completed 12/23/2022, 01/02/2013 Hepatitis B series for 19+ Aged Out N o longer eligible based on patient's age to complete this topic Procedures Procedure Name Priority Date/Time Associated Diagnosis Comments EKG 12 LEAD Today 02/18/2025 3:15 PM CDT Atrial flutter, unspecified type (HC) ECHO TTE COMPLETE WO CONTRAST Routine 02/14/2025 9:42 AM CDT Atrial flutter, unspecified type (HC) EKG 12 LEAD Routine 02/07/2025 2:37 PM CDT Irregular heartbeat GA READING EKG - NO CHARGE, COMP ONLY Routine 02/07/2025 2:36 PM CDT Irregular heartbeat BASIC METABOLIC PANEL Routine 02/07/2025 10:53 AM CDT HTN (hypertension) LIPID PANEL W REFLEX MEASURED LDL Routine 02/07/2025 10:53 AM CDT CAD in [place] artery PSA TOTAL Routine 02/07/2025 10:53 AM CDT Screening PSA (prostate specific antigen) CBC WITH AUTO DIFFERENTIAL Routine 02/07/2025 10:53 AM CDT Atrial flutter, unspecified type (HC) TSH WITH REFLEX Routine 02/07/2025 10:53 AM CDT HTN (hypertension) SDNA-FIT EXTERNAL (COLOGUARD) Routine 01/19/2024 12:44 PM CDT Screening for colon cancer ANTI HCV Routine 01/21/2021 8:48 AM CDT Need for hepatitis C screening test from Last 3 Months or Most Recently Relevant to Health Maintenance Results * EKG 12 LEAD (02/18/2025 3:15 PM CDT) Only the most recent of2 resultswithin the time period is included. Interpretation Atrial flutter with 3:1 A-V conduction Anteroseptal infarct , age undetermined Abnormal ECG No previous ECGs available Ventricular Rate 89 BPM Atrial Rate 267 BPM P-R Interval ms QRS Duration 84 ms QT 366 ms QTc 445 ms P [place] 46 degrees R [place] -11 degrees T [place] 51 degrees 02/18/2025 3:15 PM CDT 02/19/2025 8:09 AM CDT us Deepak Lr MD EKG ORD Final Res ult * ECHO TTE COMPLETE WO CONTRAST (02/14/2025 9:42 AM CDT) AORTIC VALVE MEAN PG 7 mmHg EJECTION FRACTION 41 % LVEDD 5.0 cm EJECTION FRACTION 35 - 40% Anatomical Region Laterality Modality Ultrasound 02/14/2025 9:06 AM CDT Narrative 02/14/2025 10:33 AM CDT ECHOCARDIOGRAM JESSICA MOON : 1960 64 years Study Date: 02/14/2025 9:06:26 AM Gender: M BP: 131/76 mmHg Height: 180.00 cm BSA: 2.24 m Weight: 105.00 kg Tech: EARNEST Referring MD: SHAREE REYES Site: [facility] Reading Location: Mobile-OP Patient Location: Outpatient. Procedure: 2D, Color Doppler and Spectral Doppler. Indication for study: New A Fib Cardiac Rhythm: Irregular.Study quality: Technically limited. Final Impressions: 1. Technically limited exam. 2. Normal LV size, normal wall thickness, moderately reduced global systolic function with an estimated EF of 35 - 40%. 3. Mildly enlarged left atrium. 4. There is mild global left ventricular hypokinesis. 5. Right ventricular cavity size is mildly enlarged, global systolic RV function is normal. 6. The aortic valve is sclerotic, no stenosis and no regurgitation. Comparison Compared to prior exam images and report of 01/26/2024: - The left ventricular function has decreased. - Rhythm is now irregular. Chamber Sizes and Function Normal left ventricular size, normal wall thickness, moderately reduced global systolic function with an estimated EF of 35 - 40%. There is mild global left ventricular hypokinesis. Regional wall motion assessment not well-visualized. Left atrial size is mildly enlarged. Right ventricular cavity size is mildly enlarged, global systolic RV function is normal. The right atrium is normal. Right atrial volume index is 37 ml/m . Right atrial area is 25 cm . The pulmonary artery is not well visualized. The sinus of Valsalva is normal sized. The ascending aorta is normal sized. Valves, RV Pressures and Diastolic Function The aortic valve is sclerotic, no stenosis and no regurgitation. The mitral valve is normal in structure, mild mitral regurgitation. Indeterminate pattern of LV diastolic filling. The tricuspid valve is normal in structure, trace tricuspid regurgitation. The pulmonic valve is not well visualized. No pulmonary regurgitation. Masses, Effusion, Shunts There is no pericardial effusion. The inferior vena cava is normal sized, respiratory size variation greater than 50%. No left to right shunting was detected by limited color flow Doppler interrogation of the interatrial septum. MEASUREMENTS AND CALCULATIONS 2-D Measurements and LV Function: LVID (d) 5.0 cm LV FS% (2D) 24 % LVID (s) 3.8 cm LVOT diameter 2.6 cm IVS (d) 1.2 cm HR 90 bpm LVPW (d) 0.9 cm LA Vol index 38 ml/m2 Ao Sinus 3.8 cm RA Vol index 37 ml/m2 Ao Sinus ULN 4.2 cm * RA area 25 cm Asc Ao 4.0 cm RV Basal Diam 4.5 cm Asc Ao ULN 4.2 cm * RV Mid Diam 3.5 cm LA 4.4 cm * Input BSA outside of range, reported values correspond to BSA = 2.1 Diastology: Mitral Tissue Doppler E Peak 1.0 m/s e', Septum 0.07 m/s DT 165 msec e', Lateral 0.15 m/s E/e' Average 8.71 Aortic Valve: Vmax 1.7 m/s ANILA (V) 2.68 cm VTI 0.36 m ANILA (I) 2.79 cm LVOT V max 0.9 m/s Max PG 12 mmHg LVOT VTI 0.19 m Mean PG 7 mmHg SV 101 ml Dim Index 0.53 SV index 45 ml/m CO 9.1 l/min CI 4.1 l/min/m Mitral Valve: MVA 4.6 cm MV P 1/2 48 msec Tricuspid Valve and estimated PA pressures: TAPSE 2.0 cm . This study was interpreted by an [facility] accredited facility. Final Procedure Note Carlos Belle MD - 02/14/2025 ECHOCARDIOGRAM JESSICA MOON : 1960 64 years Study Date: 02/14/2025 9:06:26 AM Gender: M BP: 131/76 mmHg Height: 180.00 cm BSA: 2.24 m Weight: 105.00 kg Tech: EARNEST Referring MD: SHAREE REYES Site: [facility] Reading Location: Mobile-OP Patient Location: Outpatient. Procedure: 2D, Color Doppler and Spectral Doppler. Indication for study: New A Fib Cardiac Rhythm: Irregular.Study quality: Technically limited. Final Impressions: 1. Technically limited exam. 2. Normal LV size, normal wall thickness, moderately reduced globalsystolic function with an estimated EF of 35 - 40%. 3. Mildly enlarged left atrium. 4. There is mild global left ventricular hypokinesis. 5. Right ventricular cavity size is mildly enlarged, global systolic RVfunction is normal. 6. The aortic valve is sclerotic, no stenosis and no regurgitation. Comparison Compared to prior exam images and report of 01/26/2024: - The left ventricular function has decreased. - Rhythm is now irregular. Chamber Sizes and Function Normal left ventricular size, normal wall thickness, moderately reducedglobal systolic function with an estimated EF of 35 - 40%. There is mildglobal left ventricular hypokinesis. Regional wall motion assessment notwell-visualized. Left atrial size is mildly enlarged. Right ventricularcavity size is mildly enlarged, global systolic RV function is normal. Theright atrium is normal. Right atrial volume index is 37 ml/m . Rightatrial area is 25 cm . The pulmonary artery is not well visualized. Thesinus of Valsalva is normal sized. The ascending aorta is normal sized. Valves, RV Pressures and Diastolic Function The aortic valve is sclerotic, no stenosis and no regurgitation. Themitral valve is normal in structure, mild mitral regurgitation.Indeterminate pattern of LV diastolic filling. The tricuspid valve isnormal in structure, trace tricuspid regurgitation. The pulmonic valve isnot well visualized. No pulmonary regurgitation. Masses, Effusion, Shunts There is no pericardial effusion. The inferior vena cava is normal sized,respiratory size variation greater than 50%. No left to right shunting wasdetected by limited color flow Doppler interrogation of the interatrialseptum. MEASUREMENTS AND CALCULATIONS 2-D Measurements and LV Function: LVID (d) 5.0 cm LV FS% (2D) 24% LVID (s) 3.8 cm LVOT diameter2.6 cm IVS (d) 1.2 cm HR 90bpm LVPW (d) 0.9 cm LA Vol index 38ml/m2 Ao Sinus 3.8 cm RA Vol index 37ml/m2 Ao Sinus ULN 4.2 cm * RA area 25cm Asc Ao 4.0 cm RV Basal Diam4.5 cm Asc Ao ULN 4.2 cm * RV Mid Diam3.5 cm LA 4.4 cm * Input BSA outside of range, reported values correspond to BSA = 2.1 Diastology: Mitral Tissue Doppler E Peak 1.0 m/s e', Septum 0.07 m/s DT 165 msec e', Lateral 0.15 m/s E/e' Average 8.71 Aortic Valve: Vmax 1.7 m/s ANILA (V) 2.68 cm VTI 0.36 m ANILA (I) 2.79 cm LVOT V max 0.9 m/s Max PG 12 mmHg LVOT VTI 0.19 m Mean PG 7 mmHg SV 101 ml Dim Index 0.53 SV index 45 ml/m CO 9.1 l/min CI 4.1 l/min/m Mitral Valve: MVA 4.6 cm MV P 1/2 48 msec Tricuspid Valve and estimated PA pressures: TAPSE 2.0 cm . This study was interpreted by an [facility] accredited facility. Final us Sharee Reyes MD ECHO ORD Final Result * GA READING EKG - NO CHARGE, COMP ONLY (02/07/2025 2:36 PM CDT) Sharee Reyes MD PB - PROVIDER READING S Final Result * TSH WITH REFLEX (02/07/2025 10:53 AM CDT) TSH W/REFLEX TO FT4 1.65 0.40 - 4.50 mIU/L [facility] j[facility]z M[facility]ollume Blood BLOOD SPECIMEN / Unknown 02/07/2025 10:53 AM CDT 02/07/2025 10:53 AM CDT Sharee Reyes MD CHEMISTRY Final Result [place] [facility] [address] [facility] [place] [address], [place] [address] [place] [address] * LIPID PANEL W REFLEX MEASURED LDL (02/07/2025 10:53 AM CDT) CHOLESTEROL, TOTAL 123 <200 mg/dL [facility] HDL CHOLESTEROL 51 > OR = 40 mg/dL [facility] TRIGLYCERIDES 104 <150 mg/dL [facility] LDL-CHOLESTEROL 53 mg/dL (calc) [facility] Comment: Reference range: <100 Desirable range <100 mg/dL for primary prevention; <70 mg/dL for patients with CHD or diabetic patients with > or = 2 CHD risk factors. LDL-C is now calculated using the Mihai calculation, which is a validated novel method providing better accuracy than the Friedewald equation in the estimation of LDL-C. Jamison HEREDIA et al. KATHY. 2013;310(19): 4617-5552 (http://education.[employer]/faq/BSZ296) CHOL/HDLC RATIO 2.4 <5.0 (calc) [facility] NON HDL CHOLESTEROL 72 <130 mg/dL (calc) [facility] Comment: For patients with diabetes plus 1 major ASCVD risk factor, treating to a non-HDL-C goal of <100 mg/dL (LDL-C of <70 mg/dL) is considered a therapeutic option. Blood BLOOD SPECIMEN / Unknown 02/07/2025 10:53 AM CDT 02/07/2025 10:53 AM CDT us Sharee Reyes MD CHEMISTRY Final Result [place] [facility] [address] [place] [address], [facility] [address] [place] [address] * CBC AND DIFFERENTIAL (02/07/2025 10:53 AM CDT) Pathologist [facility] WHITE BLOOD CELL COUNT 8.3 3.8 - 10.8 Thousand/u L [facility] RED BLOOD CELL COUNT 5.14 4.20 - 5.80 Million/uL [facility] HEMOGLOBIN 15.7 13.2 - 17.1 g/dL [facility] HEMATOCRIT 47.7 38.5 - 50.0 % [facility] MCV 92.8 80.0 - 100.0 fL [facility] MCH 30.5 27.0 - 33.0 pg [facility] MCHC 32.9 32.0 - 36.0 g/dL [facility] Comment: For adults, a slight decrease in the calculated MCHC value (in the range of 30 to 32 g/dL) is most likely not clinically significant; however, it should be interpreted with caution in correlation with other red cell parameters and the patient's clinical condition. RDW 12.8 11.0 - 15.0 % [facility] PLATELET COUNT 284 140 - 400 Thousand/u L [facility] MPV 11.4 7.5 - 12.5 fL [facility] ABSOLUTE NEUTROPHILS 5,395 1,500 - 7,800 cells/uL [facility] ABSOLUTE LYMPHOCYTES 2,042 850 - 3,900 cells/uL [facility] ABSOLUTE MONOCYTES 689 200 - 950 cells/uL [facility] ABSOLUTE EOSINOPHILS 141 15 - 500 cells/uL [facility] ABSOLUTE BASOPHILS 33 0 - 200 cells/uL [facility] NEUTROPHILS 65 % [facility] LYMPHOCYTES 24.6 % [facility] MONOCYTES 8.3 % [facility] EOSINOPHILS 1.7 % [facility] BASOPHILS 0.4 % [facility] Blood BLOOD SPECIMEN / Unknown 02/07/2025 10:53 AM CDT 02/07/2025 10:53 AM CDT us Sharee Reyes MD HEMATOLOGY Final Result [place] [facility] [address] [place] [address], [employer] [address] [place] [address] * PSA TOTAL (DIAG OR SCREEN) (02/07/2025 10:53 AM CDT) Pathologist [facility] PSA, TOTAL 1.08 < OR = 4.00 ng/mL [facility] Comment: The total PSA value from this assay system is standardized against the WHO standard. The test result will be approximately 20% lower when compared to the equimolar-standardized total PSA (Phani Almita). Comparison of serial PSA results should be interpreted with this fact in mind. This test was performed using the Siemens chemiluminescent method. Values obtained from different assay methods cannot be used interchangeably. PSA levels, regardless of value, should not be interpreted as absolute evidence of the presence or absence of disease. Blood BLOOD SPECIMEN / Unknown 02/07/2025 10:53 AM CDT 02/07/2025 10:53 AM CDT Sharee Reyes MD CHEMISTRY Final Result [place] [facility] [address] [place] [address], [facility] [address] [place] [address] * (ABNORMAL) BASIC METABOLIC PANEL (02/07/2025 10:53 AM CDT) [facility] GLUCOSE 107(H) 65 - 99 mg/dL [facility] Comment: Fasting reference interval For someone without known diabetes, a glucose value between 100 and 125 mg/dL is consistent with prediabetes and should be confirmed with a follow-up test. UREA NITROGEN (BUN) 14 7 - 25 mg/dL [facility] CREATININE 1.00 0.70 - 1.35 mg/dL [facility] EGFR 84 > OR = 60 mL/min/1. 73m2 [facility] BUN/CREATININE RATIO SEE NOTE: (calc) [facility] Comment: Not Reported: BUN and Creatinine are within reference range. SODIUM 139 135 - 146 mmol/L [facility] POTASSIUM 4.5 3.5 - 5.3 mmol/L [facility] CHLORIDE 101 98 - 110 mmol/L [facility] CARBON DIOXIDE 28 20 - 32 mmol/L [facility] ELECTROLYTE BALANCE 10 7 - 17 mmol/L (calc) [facility] CALCIUM 10.2 8.6 - 10.3 mg/dL [facility] Blood BLOOD SPECIMEN / Unknown 02/07/2025 10:53 AM CDT 02/07/2025 10:53 AM CDT Sharee Reyes MD CHEMISTRY Final Result [place] [facility] [address] [place] [address], [facility] [address] [place] [address] * SDNA-FIT EXTERNAL (COLOGUARD) (01/19/2024 12:44 PM CDT) NONINV COLON CA DNA+OCC BLD SCRN STL-IMP Negative Negative 01/26/2024 12:06 AM CDT [employer] (CLIA #:[id number]) Comment: NEGATIVE TEST RESULT. A negative Cologuard result indicates a low likelihood that a colorectal cancer (CRC) or advanced adenoma (adenomatous polyps with more advanced pre-malignant features) is present. The chance that a person with a negative Cologuard test has a colorectal cancer is less than 1 in 1500 (negative predictive value >99.9%) or has an advanced adenoma is less than 5.3% (negative predictive value 94.7%). These data are based on a prospective cross-sectional study of 10,000 individuals at average risk for colorectal cancer who were screened with both Cologuard and colonoscopy. (Telly Mccord al, N Engl J Med 2014;370(14):8099-1185) The normal value (reference range) for this assay is negative. COLOGUARD RE-SCREENING RECOMMENDATION: Periodic colorectal cancer screening is an important part of preventive healthcare for asymptomatic individuals at average risk for colorectal cancer. Following a negative Cologuard result, the [place] [employer] Society and U.S. Multi-Society Task Force screening guidelines recommend a Cologuard re-screening interval of 3 years. References: [place] [employer] Guideline for Colorectal Cancer Screening: https://www.cancer.org/cancer/yxqyt-ynyyth-njztmq/bworwyeem-piroobioo-mtqfvbq/ac s-rec ommendations.html.; Gurdeep DK, Rosette GARCIA, Saúl MckeonK, Colorectal Cancer Screening: Recommendations for Physicians and Patients from the U.S. Multi-Society Task Force on Colorectal Cancer Screening , Am J Gastroenterology 2017; 112:7392-6072. TEST DESCRIPTION: Composite algorithmic analysis of stool DNA-biomarkers with hemoglobin immunoassay. Quantitative values of individual biomarkers are not reportable and are not associated with individual biomarker result reference ranges. Cologuard is intended for colorectal cancer screening of adults of either sex, 45 years or older, who are at average-risk for colorectal cancer (CRC). Cologuard has been approved for use by the U.S. FDA. The performance of Cologuard was established in a cross sectional study of average-risk adults aged 50-84. Cologuard performance in patients ages 45 to 49 years was estimated by sub-group analysis of near-age groups. Colonoscopies performed for a positive result may find as the most clinically significant lesion: colorectal cancer [4.0%], advanced adenoma (including sessile serrated polyps greater than or equal to 1cm diameter) [20%] or non- advanced adenoma [31%]; or no colorectal neoplasia [45%]. These estimates are derived from a prospective cross-sectional screening study of 10,000 individuals at average risk for colorectal cancer who were screened with both Cologuard and colonoscopy. (Telly Mccord al, N Engl J Med 2014;370(14):1557-6422.) Cologuard may produce a false negative or false positive result (no colorectal cancer or precancerous polyp present at colonoscopy follow up). A negative Cologuard test result does not guarantee the absence of CRC or advanced adenoma (pre-cancer). The current Cologuard screening interval is every 3 years. ([place] [employer] Society and U.S. Multi-Society Task Force). Cologuard performance data in a 10,000 patient pivotal study using colonoscopy as the reference method can be accessed at the following location: www.Athersys.Qgiv/results. Additional description of the Cologuard test process, warnings and precautions can be found at www.cologuard.com. Stool specimen (specimen) (Rectum) 01/19/2024 12:44 PM CDT 01/20/2024 12:25 PM CDT Sharee Reyes MD URINE Final Result [facility] (CLIA #:[id number]) [place] [address], [place] [phone] * ANTI HCV (01/21/2021 8:48 AM CDT) HEPATITIS C ANTIBODY Non-React efra Non-React efra 01/21/2021 3:28 PM CDT [facility] Comment:Antibodies to HCV no t detected; does not exclude the possibility of exposure to HCV. Blood BLOOD SPECIMEN / Unknown Butterfly / Unknown 01/21/2021 8:48 AM CDT 01/21/2021 8:49 AM CDT Sharee Reyes MD SEND OUTS Final Result [facility] [address] [place] [address], [place] from Last 3 Months or Most Recently Relevant to Health Maintenance Insurance [employer] MEDICARE ADVANTAGE [id number] [place] [address] Care Teams Quill Buncher And Sorter Relationship Specialty Start Date End Date Sharee Reyes MD [address] [place] [address] PCP - General Family Practice 11/28/20
--- OUTSIDE RECORDS SUMMARY | 2025-03-02 02:01 | XMS_ITS | Patient Health Record ---
Author Organization [facility] Address [facility] [address] [place] [address] Care Team Providers Care Rn Examiner Name Role Phone AP DAMICO Unavailable [phone] Reason For Referral No Information Problems Problem Type SNOMED Code ICD Code Onset Dates Problem Status W/U Status Risk Notes Problem Obstructive sleep apnea syndrome (disorder) (53804638) Obstructive sleep apnea (adult) (pediatric) (327.23) Active confirmed Plan Of Treatment No Information Insurance Providers Payer Name Payer Address Payer Phone Subscriber Number Group Number Insured Name Patient Relationship to Insured Coverage Start Date Coverage End Date [employer] [address] [address] [place] [address] [id number] Home Parker Self - patient is the insured 0
--- OUTSIDE RECORDS SUMMARY | 2025-03-02 02:01 | XMS_ITS | Encounter Summary ---
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
--- OUTSIDE RECORDS SUMMARY | 2025-03-02 02:02 | XMS_ITS | Clinical Summary ---
Author Organization [place] Address [address] [place] [address] Care Team Providers Care String Cutter Name Role Phone Clinic, [facility] Primary Care Provider Allergies Active Allergy Reactions Criticality Noted Date Comments Doxycycline Other (See Comments) 05/22/2012 sweating Medications zolpidem (AMBIEN) 10 MG tablet Take by mouth nightly as needed. Active lisinopril (PRINIVIL,ZESTRIL ) 10 MG tablet Take 10 mg by mouth daily. Active GABAPENTIN PO Take 300 mg by mouth daily. Active pantoprazole (PROTONIX) 40 MG enteric coated tablet Take 40 mg by mouth daily. Active acetaminophen (TYLENOL) 500 MG tabletIndications :Hip replacement Take 2 tablets by mouth every 6 hours as needed. 100 tablet 0 2 Active SIMVASTATIN PO Take 20 mg by mouth Active loteprednol (LOTEMAX) 0.5 % ophthalmic suspensionIndicat ions:Ulcerative blepharitis, unspecified laterality Place 1 drop into both eyes 2 times daily 1 Bottle 3 4 Active olopatadine (PATANOL) 0.1 % ophthalmic solutionIndicatio ns:Tear film insufficiency Place 1 drop into both eyes 2 times daily Keep -20-16 appointment for further refills 1 Bottle 0 6 Active brimonidine (ALPHAGAN-P) 0.15 % ophthalmic solutionIndicatio ns:Tear film insufficiency Place 1 drop into both eyes 2 times daily Keep -20-16 appointment for further refills 1 Bottle 0 6 Active diltiazem ER (CARDIAZEM LA) 120 MG 24 hr tablet Take 1 tablet (120 mg) by mouth daily. 30 tablet 06/11/202 5 Active Active Problems Problem Noted Date Diagnosed Date Status post hip replacement 05/22/2012 Overview (06/12/2012): (Problem list name updated by automated process. Provider to review and confirm.) Encounters Date Type Department Care Team Description 02/21/2025 Results Follow-Up [facility] [address] [place] [address] Ciarra Dukes RN 02/19/2025 11:54 PM CDT - 02/20/2025 2:[address] [facility] Emergency Dept [address] [place] [address] Matias Steen MD Atrial flutter with rapid ventricular response (H) Discharge Disposition: Home or Self Care 02/19/2025 Travel from Last 3 Months Family History Medical History Relation Comments Glaucoma No family hx of Macular Degeneration No family hx of Social History Tobacco Use Types Packs/Day Years Used Date Smoking Tobacco: Never Smokeless Tobacco: Never Alcohol Use Standard Drinks/Week Comments Yes 0 (1 standard drink = 0.6 oz pur e alcohol) 4 drinks weekly Sex and Gender Information Value Date Recorded Sex Assigned at Not on file Legal Sex 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 Gender Identity Not on file Sexual Orientation Not on file Last Filed Vital Signs Vital Sign Reading [...] Mass Index 33.58 02/19/2025 11:28 PM CDT Plan of Treatment Health Maintenance Due Date Last Done Comments ADVANCE CARE PLANNING 1959 ANNUAL REVIEW OF HM ORDERS 1959 CT COLONOGRAPHY 1959 FIT 1959 FLEX SIG 1959 COLONOSCOPY 1969 HIV SCREENING 1974 PNEUMOCOCCAL VACCINE 50+ YEARS (1 of 2 - PCV) 1978 LIPID 06/28/2018 06/28/2017, 10/14, 09/18/2014 RSV VACCINE (1 - Risk 60-74 years 1-dose series) 2019 COVID-19 VACCINE ( - season) 2024 07/07/2022, 07/30/2021, 12/20/2020, Additional history exists PHQ-2 (once per calendar year) 2024 FALL RISK ASSESSMENT 2024 INFLUENZA VACCINE (Season Ended) 2025 07/07/2022, 07/30/2021, 07/11/2020, Additional history exists MEDICARE ANNUAL WELLNESS VISIT 02/07/2026 02/07/2025, 01/13/2024 COLORECTAL CANCER SCREENING 01/18/2027 sDNA (Cologuard) 01/18/2027 01/19/2024, 01/19/2024 DIABETES SCREENING 02/20/2028 02/19/2025, 0 05/24/2012, 05/23/2012 DTAP/TDAP/TD VACCINE (3 - Td or Tdap) 12/23/2032 12/23/2022, 01/02/2013, 06/12/2005, Additional history exists ZOSTER VACCINE Completed 03/19/2020, 11/13/2019 HEPATITIS C SCREENING Completed 01/21/2021 HPV VACCINE Aged Out No longer eligi ble based on patient's age to complete this topic MENINGITIS VACCINE Aged Out No longer eligible based on patient's age to complete this topic Medical Devices Implanted Type Area [employer] Solutions Consultant Device Identifier Shelf Expiration Date Model / Serial / Lot Imp Shell Acetabulum Zim 56mm [id number] Implanted:Qty: 1 on 05/22/2012 by Anthony Davis MD at [facility] Left: Hip 03/06/2021-6200-0 56 -22 / / [id number] Imp Scr Zim 6.5x30mm Acet Cup Self Tap [id number] Implanted:Qty: 1 on 05/22/2012 by Anthony Davis MD at [facility] Left: Hip 12/04/2021-6250-0 65 -30 / / [id number] Imp Liner Acetabulum Zim Xlpe 26i05mo [id number] Implanted:Qty: 1 on 05/22/2012 by Anthony Davis MD at [facility] Left: Hip 03/06/20176305-0 56 -36 / / [id number] Imp Stem Femoral Zim Size 10 [id number] Implanted:Qty: 1 on 05/22/2012 by Anthony Davis MD at [facility] Left: Hip 12/04/2021-7711-0 10 -00 / / [id number] Imp Head Femoral Zim Versys 36mm +0 [id number] Implanted:Qty: 1 on 05/22/2012 by Anthony Davis MD at [facility] Left: Hip 04/05/2022-8018-0 36 -02 / / [id number] Procedures Procedure Name Priority Date/Time Associated Diagnosis Comments EKG 12-LEAD, TRACING ONLY STAT 02/20/2025 2:34 AM CDT TROPONIN T, HIGH SENSITIVITY STAT 02/20/2025 1:33 AM CDT URINE CULTURE STAT 02/20/2025 12:25 AM CDT ROUTINE UA WITH MICROSCOPIC REFLEX TO CULTURE STAT 02/20/2025 12:25 AM CDT CBC WITH PLATELETS & DIFFERENTIAL STAT 02/19/2025 11:31 PM CDT MAGNESIUM STAT 02/19/2025 11:31 PM CDT EXTRA RED TOP TUBE STAT 02/19/2025 11 :31 PM CDT EXTRA BLUE TOP TUBE STAT 02/19/2025 1 1:31 PM CDT CBC WITH PLATELETS AND DIFFERENTIAL STAT 02/19/2025 11:31 PM CDT EXTRA TUBE STAT 02/19/2025 11:31 PM CDT TROPONIN T, HIGH SENSITIVITY STAT 02/19/2025 11:31 PM CDT BASIC METABOLIC PANEL STAT 02/19/2025 11:31 PM CDT EKG 12-LEAD, TRACING ONLY STAT 02/19/2025 11:22 PM CDT LIPID PROFILE Routine 06/28/2017 10:33 AM CDT from Last 3 Months or Most Recently Relevant to Health Maintenance Results * EKG 12-lead, tracing only (02/20/2025 2:34 AM CDT) Only the most recent of2 resultswithin the time period is included. Systolic Blood Pressure mmHg RADIOLOGY RESULTS Diastolic Blood Pressure mmHg RADIOLOGY RESULTS Ventricular Rate 58 BPM RAD IOLOGY RESULTS Atrial Rate 256 BPM RADIOLOG Y RESULTS MO Interval ms RADIOLOG Y RESULTS QRS Duration 90 ms RADIOLO GY RESULTS QT 380 ms RADIOLOGY RESULTS QTc 373 ms RADIOLOGY RESULTS P [place] degrees RADIOLOGY RESULTS R AXIS 13 degrees RADIOLOGY RESULTS T [place] 39 degrees RADIOLOGY RESULTS Interpretation ECG Atrial [...] Confirmed by - EMERGENCY ROOM, PHYSICIAN ([id number]), research editor DIMAS URIBE ([id number]) on 02/20/2025 6:46:48 AM RADIOLOGY RESULTS 02/20/2025 2:34 AM CDT 02/20/2025 6:46 AM CDT us Matias Steen MD ECG ORDERABLES E dited Result - Final RADIOLOGY RESULTS * Troponin T, High Sensitivity (02/20/2025 1:33 AM CDT) Only the most recent of2 resultswithin the time period is included. Troponin T, High Sensitivity 10 <=22 ng/L [...] - BLOOD ORDER LUIS Final Result LABORATORY [facility] Acute Care Lab [address] Lab (1st floor, no room number) [place] [address] * (ABNORMAL) UA with Microscopic reflex [...] mg/dL 02/20/2025 1:11 AM CDT LABORATORY Specific [place] Urine 1.022 1.003 - 1.035 02/20/2025 1:11 AM CDT LABORATORY Blood Urine Large(A) Negative 02/20/2025 1:11 AM CDT LABORATORY pH Urine 5.5 5.0 - 7.0 02/20/2025 1:11 AM CDT LABORATORY Protein Albumin Urine 50(A) Negative mg/dL 02/20/2025 1:11 AM CDT LABORATORY Urobilinogen Urine 2.0(A) Normal mg/dL 02/20/2025 1:11 AM CDT LABORATORY Nitrite Urine Negative Negative 02/20/2025 1:11 AM CDT LABORATORY Leukocyte Esterase Urine Negative Negative 02/20/2025 1:11 AM CDT LABORATORY Mucus Urine Present(A) None Seen /LPF 02/20/2025 1:11 AM CDT LABORATORY RBC Urine >182(H) <=2 /HPF 02/20/2025 1:11 AM CDT LABORATORY WBC Urine 12(H) <=5 /HPF 02/20/2025 1:11 AM CDT LABORATORY Squamous Epithelials Urine 1 <=1 /HPF 02/20/2025 1:11 AM CDT LABORATORY Urine MID-STREAM URINE SPECIMEN / Unknown Non-blood Collection / Unknown 02/20/2025 12:25 AM CDT 02/20/2025 12:57 AM CDT Narrative LABORATORY - 02/20/2025 1:11 AM CDT Urine Culture ordered based on laboratory criteria us Matias Steen MD LAB - URINE ORDER LUIS Final Result LABORATORY [facility] Acute Care Lab [address] Lab (1st floor, no room number) [place] [address], [facility] * Urine Culture (02/20/2025 12:25 AM CDT) Culture No Growth 02/21/2025 2:48 AM CDT [facility] Urine MID-STREAM URINE SPECIMEN / Unknown Non-blood Collection / Unknown 02/20/2025 12:25 AM CDT 02/20/2025 1:11 AM CDT Matias Steen MD LAB - MICRO GENER AL ORDERABLES Final Result [facility]AT[facility] Inf. Diseases Diag. Lab [address] [place] [address], [facility] * Extra Red Top Tube (02/19/2025 11:31 PM CDT) Hold Specimen [facility] 02/20/2025 12:47 AM CDT LABORATORY Blood VENOUS LINE / Unknown Venipuncture / Unknown 02/19/2025 11:31 PM CDT 02/19/2025 11:37 PM CDT Matias Steen MD LAB - BLOOD ORDER LUIS Final Result [facility] Care Lab [address] Lab (1st floor, no room number) [place] [address], [facility] * Extra Blue Top Tube (02/19/2025 11:31 PM CDT) Hold Specimen [facility] 02/20/2025 12:47 AM CDT LABORATORY Blood VENOUS LINE / Unknown Venipuncture / Unknown 02/19/2025 11:31 PM CDT 02/19/2025 11:37 PM CDT Matias Steen MD LAB - BLOOD ORDER LUIS Final Result [facility] Care Lab [address] Lab (1st floor, no room number) [place] [address], [facility] * (ABNORMAL) CBC with platelets and differential (02/19/2025 11:31 PM CDT) Pathologist [facility] WBC Count 11.6(H) 4.0 - 11.0 10e3/uL [...] - BLOOD ORDER LUIS Final Result LABORATORY [facility] Lab [address] Lab (1st floor, no room number) [place] [phone] [place] [address] * Magnesium (02/19/2025 11:31 PM CDT) Magnesium 2.0 1.7 - 2.3 mg/dL 02/20/2025 12:23 AM CDT [facility] LABORATORY Blood VENOUS LINE / Unknown Venipuncture / Unknown 02/19/2025 11:31 PM CDT 02/19/2025 11:37 PM CDT Matias Steen MD LAB - BLOOD ORDER LUIS Final Result LABORATORY [facility] Lab [address] Lab (1st floor, no room number) [place] [phone] [place] [address] * (ABNORMAL) Basic metabolic panel (02/19/2025 11:31 PM CDT) Sodium 140 135 - 145 mmol/L 02/19/2025 11:57 PM CDT [facility] LABORATORY Potassium 4.0 3.4 - 5.3 mmol/L 02/19/2025 11:57 PM CDT [facility] LABORATORY Chloride 102 98 - 107 mmol/L 02/19/2025 11:57 PM CDT RH LABORATORY Carbon Dioxide (CO2) 24 22 - 29 mmol/L 02/19/2025 11:57 PM CDT LABORATORY Anion Gap 14 7 - 15 mmol/L 02/19/2025 11:57 PM CDT LABORATORY Urea Nitrogen 13.1 8.0 - 23.0 mg/dL 02/19/2025 11:57 PM CDT LABORATORY Creatinine 1.21(H) 0.67 - 1.17 mg/dL 02/19/2025 11:57 PM CDT LABORATORY GFR Estimate 66 >60 mL/min/1.7 3m2 02/19/2025 11:57 PM CDT LABORATORY Comment:eGFR calculated usin 2020 CKD-EPI equation. Calcium 9.6 8.8 - 10.4 mg/dL 02/19/2025 11:57 PM CDT LABORATORY Glucose 108(H) 70 - 99 mg/dL 02/19/2025 11:57 PM CDT LABORATORY Blood VENOUS LINE / Unknown Venipuncture / Unknown 02/19/2025 11:31 PM CDT 02/19/2025 11:37 PM CDT Matias Steen MD LAB - BLOOD ORDER LUIS Final Result LABORATORY [facility] Acute Care Lab [address] Lab (1st floor, no room number) [place] [address] * (ABNORMAL) Lipid Profile (06/28/2017 10:33 AM CDT) Cholesterol 171 <=199 mg/dL 06/28/2017 3:21 PM CDT [facility] Triglycerides 296(H) <=149 mg/dL 06/28/2017 3:21 PM CDT [facility] Direct Measure HDL 46 >=40 mg/dL 06/28/2017 3:21 PM CDT [facility] LDL Cholesterol Calculated 66 <=129 mg/dL 06/28/2017 3:21 PM CDT [facility] Patient Fasting > 8hrs? Unknown 06/28/2017 3:21 PM CDT [facility] Blood specimen (specimen) 06/28/2017 10:33 AM CDT 06/28/2017 2:34 PM CDT Emanuel Odonnell MD LAB - BLOOD ORDERABLES Final Result [facility] [address] [place] [address], [facility] [address] [place] [address] from Last 3 Months or Most Recently Relevant to Health Maintenance Insurance [facility] MEDICARE ADVANTAGE [facility] MEDICARE ADVANTAGE Advance Directives For more information, please contact: [phone] * Full Code (Latest Code Status on File) Date Activated Date Inactivated Comments 05/22/2012 2:07 PM 05/25/2012 3:00 PM Care Teams String Cutter Relationship Specialty Start Date End Date [address] [address] PCP - General 02/20/25
--- OUTSIDE RECORDS SUMMARY | 2025-03-02 02:02 | XMS_ITS | Encounter Summary ---
Author Organization [place] Address [address] [place] [address] Care Team Providers Care Lymphedema Therapist Name Role Phone [facility] Primary Care Provider Encounter Details Date Type Department Care Team (Late st Contact Info) Description 02/21/2025 Results Follow-Up [facility] [address] [place] [address] Ciarra Dukes RN Social History Tobacco Use Types Packs/Day Years Used Date Smoking Tobacco: Never Smokeless Tobacco: Never Alcohol Use Standard Drinks/Week Comments Yes 0 (1 standard drink = 0.6 oz pur e alcohol) 4 drinks weekly Sex and Gender Information Value Date Recorded Sex Assigned at Not on file 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
[2025-03-02 02:10] VITALS: BP 113/90; PULSE 126; RESP 18; TEMP 37.4; O2SAT 96; BMI 33.0
--- NOTE | 2025-03-02 02:32 | ED.GENADULT ---
HPI - General Adult General Time Seen by Provider: 02:32 Date Seen: 03/02/25 Chief complaint: Lower Extremity Swelling Stated complaint: R foot/ankle pain and swelling Time Seen by Provider: 03/02/25 02:31 Source: patient and RN notes reviewed Mode of arrival: ambulatory Limitations: no limitations History of Present Illness HPI narrative: This 64-year-old male is presenting with right ankle pain starting yesterday. He has a history of probable gout in his left knee that was treated in [place]. He got a steroid shot in placed on prednisone and completely resolved his symptoms, he had quite quick relief with this. Did not have the joint tapped per his report. He does have underlying atrial fibrillation and is supposed to get an ablation next Tuesday. He is on Xarelto. Had been given indomethacin to use for acute gout but read that this is an NSAID in he was aware that being on Xarelto could be problematic. He denies any injury. He has no fevers with this, does not feel ill. He does note that his atrial fibrillation is acting up a bit with the slightly increased heart rate but he is in a lot of pain. It hurts the point that he does not even want to put covers on it, can barely bear weight on it. Related Data Home Medications ?Medication ?Instructions ?Recorded ?Confirmed diltiazem HCl 120 mg 120 mg PO DAILY 03/02/25 03/02/25 tablet,extended release 24 hr gabapentin 300 mg capsule mg PO 03/02/25 pantoprazole 40 mg tablet,delayed 40 mg PO DAILY 03/02/25 03/02/25 release rivaroxaban 20 mg tablet (Xarelto) 20 mg PO DAILY 03/02/25 03/02/25 rosuvastatin 20 mg tablet 20 mg PO QPM 03/02/25 03/02/25 zolpidem 10 mg tablet 10 mg PO QPM PRN insomnia 03/02/25 03/02/25 Allergies Allergy/AdvReac Type Severity Reaction Status Date / Time No Known Drug Allergies Allergy Verified 03/02/25 02:29 Review of Systems Narrative: As per HPI. Exam Const: Vital Signs, click to edit/add: Vital Signs - 24 hr 03/02/25 02:10 Temperature 99.3 F Pulse Rate [Pulse Oximeter] 126 H Respiratory Rate 18 Blood Pressure [Ri ght Upper Arm] 113/90 H Pulse Oximetry 96 Oxygen Delivery Me thod Room Air Patient is alert, interactive, no apparent distress. Speaking easily on room air, no dyspnea. Lungs clear, no wheezing crackles, no tachypnea. CV is fast, irregular, no murmur. His right ankle has some warmth, is swollen, is very tender behind his medial malleolus, more mildly tender over his anterior mortise. Any range of motion about the ankle is very painful for him. He has some swelling down into the foot but no significant tenderness, no erythema or warmth of the foot. Neurovascular is intact. Documenting provider has reviewed patient's vital signs: yes Course Course ED Course: Patient does very likely have gout. He would like a steroid injection, will give him 40 mg IM Solu-Medrol. It is not completely necessary but he felt it was quite helpful last time. Will also give him prednisone and a few tablets of oxycodone from [facility]. Did review that he is in atrial fibrillation with RVR very likely. Feels that this will settle down with treatment of his pain and the gout. He is cautioned on this but he does have cardiac follow-up and he is reporting to have an ablation next week. He certainly does not seem to be in any congestive heart failure or complications from his atrial fibrillation at this time. He is advised to watch his heart rate. Vital Signs Vital signs: Initial Vital Signs Temperature 99.3 F 03/02/25 02:10 Temperature Source Temporal Artery Scan 03/02/25 02:10 Pulse Rate 126 H 03/02/25 02:10 Respiratory Rate 18 03/02/25 02:10 Blood Pressure 113/90 H 03/02/25 02:10 Blood Pressure Mean 97 03/02/25 02:10 Blood Pressure Position Sitting 03/02/25 02:10 Pulse Oximetry 96 03/02/25 02:10 Oxygen Delivery Method Room Air 03/02/25 02:10 Vital Signs Temperature 99.3 F 03/02/25 02:10 Pulse Rate 126 H 03/02/25 02:10 Respiratory Rate 18 03/02/25 02:10 Blood Pressure 113/90 H 03/02/25 02:10 Pulse Oximetry 96 03/02/25 02:10 Oxygen Delivery Method Room Air 03/02/25 02:10 Temperature 99.3 F 03/02/25 02:10 Pulse Rate 126 H 03/02/25 02:10 Respiratory Rate 18 03/02/25 02:10 Blood Pressure 113/90 H 03/02/25 02:10 Pulse Oximetry 96 03/02/25 02:10 Oxygen Delivery Method Room Air 03/02/25 02:10 Discharge Plan Discharge Clinical Impression: Gout Qualifiers: Gout site: ankle Gout etiology: unspecified cause Chronicity: acute Laterality: right Qualified Code(s): M10.9 - Gout, unspecified Patient Disposition: Home, Self-Care Condition: Stable Instructions: Low Purine Diet (ED), Gout (ED) Additional Instructions: Start prednisone in the morning and take as prescribed, 20 mg twice a day for 5 days. Recommend taking prednisone with food to protect her stomach. Can take Tylenol 1000 mg 3 times a day baseline for pain management. Try to ice and elevate this ankle/foot, will help decrease pain and swelling. Have written for few tablets of oxycodone to help get through this initial time of more severe pain, 5 mg every 6 hours as needed, 4 tablets prescribed. If you are not improving with these measures, feel you are worsening or have further concerns, please seek re-evaluation. If you continue to have recurrent gout issues, can talk to your primary care provider about allopurinol to help suppress gout attacks. You cannot start allopurinol during an acute gout attack. Activity Level: Activity as Tolerated Prescriptions: No Action pantoprazole 40 mg tablet,delayed release (DR/EC) 40 mg PO DAILY gabapentin 300 mg capsule PO zolpidem 10 mg tablet 10 mg PO QPM PRN (Reason: insomnia) diltiazem HCl 120 mg tablet extended release 24 hr 120 mg PO DAILY rosuvastatin 20 mg tablet 20 mg PO QPM Xarelto 20 mg tablet 20 mg PO DAILY Follow Up/Referrals: Juan José Barbosa MD [Primary Care Provider, Family Practice] Stand Alone Forms: [employer] Info Instructions
[2025-03-02] MEDS: METHYLPREDNISOLONE SOD SUCC 40 MG/ML IM (02:54)
[2025-03-02 03:00] VITALS: BP 122/89; PULSE 101; RESP 16; O2SAT 97
== END 2025-03-02 03:07 | disposition home or self-care (01) ==
LOC: ED 02:58
PROVIDERS: Emergency Provider Family Medicine; PCP Family Medicine
DX: M10.9 Gout, unspecified (principal)
CPT/HCPCS: 96372; 99283; J2919